=== PATIENT | female | born 1935 | race Two or more races ===

== ENCOUNTER 2021-04-17 08:30 | Outpatient (CLI) | payer OTHER | END 2021-04-17 09:00 | disposition home or self-care (01) | LOC: PPH VACUNA 08:30 | PROVIDERS: ATTEND Emergency Medicine Pediatric Emergency Medicine | DX: Z23 Encounter for immunization (principal) ==

== ENCOUNTER 2021-12-04 15:51 | Emergency (ER) | payer OTHER ==
[~2021-12-04] VITALS: Ht 165.1 cm; Wt 68.0 kg
[2021-12-04] MEDS ORDERED: ATIVAN (17:57)
[2021-12-04] MEDS ORDERED: [UNRECOGNIZED DRUG - OTHER] (17:58)
== END 2021-12-04 22:23 | disposition home or self-care (01) ==
LOC: ER 15:51
DX: I80.292 Phlebitis and thrombophlebitis of other deep vessels of left lower extremity (principal)

== ENCOUNTER 2022-06-24 11:45 | Outpatient (CLI) | payer OTHER ==
[~2022-06-24 11:45] MED LIST: ATIVAN; [UNRECOGNIZED DRUG - OTHER]
== END 2022-06-24 11:52 | disposition home or self-care (01) ==
LOC: TOM 11:45
PROVIDERS: ATTEND Internal Medicine
DX: R51.9 Headache, unspecified (principal)